=== PATIENT | male | born 1980 | race Caucasian/White ===

== ENCOUNTER 2022-02-19 12:35 | Emergency (ER) | payer OTHER ==
[2022-02-19] MEDS ORDERED: Sodium Chloride 0.9% 10 ML Syringe FLUSH PRN ×2 (13:37→13:57)
[2022-02-19] MEDS ORDERED: Sodium Chloride 0.9% 50 ML IV ONE (13:57)
[2022-02-19] MEDS ORDERED: Iopamidol 612 MG/ML 100 ML Bottle IV PRN (13:57)
[2022-02-19 14:06] LABS: ESTIMATED GFR 97 mL/min (>60)
== END 2022-02-19 16:16 | disposition home or self-care (01) ==
LOC: JP.ED 12:35
DX: S22.31XA Fracture of one rib, right side, initial encounter for closed fracture (principal); W01.198A Fall on same level from slipping, tripping and stumbling with subsequent striking against other object, initial encounter
CPT/HCPCS: 36415; 71260; 74177; 80048; 81001; 85025; 99284; J3490; Q9967